=== PATIENT | female | born 1960 | race Caucasian/White ===

== ENCOUNTER → 2019-08-28 | Outpatient (CLI) | payer OTHER ==
--- NOTE | 2019-08-29 13:21 | KCIC ---
Bilateral digital screening mammograms with 3-D tomosynthesis: Reason for examination: Routine screening. Comparison is made to previous studies dated 06/04/2017 and 09/15/2012. Bilateral mammograms in CC and oblique projections were obtained with 2-D imaging and 3-D tomosynthesis imaging on a Siemens Inspiration unit and reviewed on the workstation. Interpretation was made with the benefit of CAD. The skin and nipples show no abnormalities. No abnormal axillary lymph nodes are seen. The breast parenchyma shows scattered fatty and fibroglandular density. (Breast density: Category B.) There continue to be small nodular densities in the upper outer quadrant of the right breast posteriorly consistent with probable intramammary lymph nodes which are stable. There are no new dominant masses, suspicious calcifications or architectural distortion. Benign calcifications are present. Impression: No evidence of malignancy. Recommend routine screening. BI-RAD Category 2: Benign. "Our facility is accredited by the [employer] Mammography Program." This patient's information has been entered into a reminder system for the patient to be notified with the results of her examination and a target date for the next mammogram. Electronically signed by: Gail Jara MD (08/29/2019 1:18 PM) [id number]
== END ==
LOC: KCIC CT 16:38
PROVIDERS: ATTEND Family Medicine
DX: Z12.31 Encounter for screening mammogram for malignant neoplasm of breast (principal)
CPT/HCPCS: 77063; 77067

== ENCOUNTER → 2019-08-29 | Outpatient (CLI) | payer SELFPAY ==
--- NOTE | 2019-08-29 16:33 | KCIC ---
PQRS Compliance Statement: One or more of the following individualized dose reduction techniques were utilized for this examination: 1. Automated exposure control 2. Adjustment of the mA and/or kV according to patient size 3. Use of iterative reconstruction technique Coronary calcium score CT chest without contrast History: 59-year-old female with left chest pain, hypercholesterolemia, history of smoking, and family history of heart disease. Technique: With retrospective electrocardiogram gating axial reconstructed noncontrast images of the chest at the level of the coronary arteries was performed. Images were post processed on workstation and calcium score calculated using the modified Agatston Janowitz protocol. Findings: Total coronary calcium score is 0. This places the patient in the 0th percentile rank which means that 100% of females between the ages of 56-60 have a higher calcium score than this patient. This is a no identifiable plaque burden and very low cardiovascular disease risk. This is based on the calcium score of 0 of the left main coronary artery, 0 of the left anterior descending artery, score of 0 of the left circumflex artery and score of 0 of the right coronary artery. Noncoronary findings demonstrate calcified subcarinal and right and left hilar lymph nodes. The great vessels are normal caliber. The cardiac size is upper limits of normal. No pericardial effusion. Visualized upper abdomen is unremarkable. There is no pleural abnormality. The visualized central airways are patent. There is a 4 mm noncalcified nodule in the inferior lingula, image 30. There is minimal atelectasis or scarring in the posterior lower lobes bilaterally. The visualized lungs are otherwise clear. IMPRESSION: 1. Patient's total calcium score is 0. 2. There is a 4 mm noncalcified nodule in the lingula. Consider optional CT chest in 12 months per Fleischner Society guidelines. 3. Cardiac size upper limits of normal. Electronically signed by: Max Caicedo MD (08/29/2019 4:30 PM) [id number]
== END | disposition home or self-care (01) ==
LOC: KCIC 11:34
PROVIDERS: ATTEND Family Medicine
DX: Z13.6 Encounter for screening for cardiovascular disorders (principal); R07.89 Other chest pain; Z87.891 Personal history of nicotine dependence
CPT/HCPCS: 75571

== ENCOUNTER → 2020-09-27 | Outpatient (CLI) | payer OTHER ==
--- NOTE | 2020-09-27 14:24 | KCIC ---
CT scan of the chest without contrast 09/27/2020 CLINICAL HISTORY: History of lung nodule. TECHNIQUE: Unenhanced, contiguous, 0.6 mm axial sections were obtained through the chest. 1.5 mm and 5 mm axial along with 3 mm sagittal and coronal images were obtained. One or more of the following individualized dose reduction techniques were utilized for this study: 1. Automated exposure control. 2. Adjustment of the mA and/or kV according to patient size. 3. Use of iterative reconstruction technique. FINDINGS: Comparison is made to patient's CTA calcium scoring study dated 08/29/2019. Mild atherosclerotic calcification of the thoracic aorta is seen. The thoracic aorta is mildly tortuo us but tapers normally. Calcified hilar and mediastinal lymph nodes are seen which measure 3 mm to 1 cm in size. No hilar, mediastinal or axillary lymphadenopathy is noted. The heart is normal in size. Images through the upper abdomen are within normal limits. Very mild S-shaped curvature of the thorac olumbar spine is seen. Degenerative changes are seen involving the thoracic spine. A 8mm calcified granuloma is seen involving the superior aspect of the right upper lobe. A 4 mm nodul e seen involving the inferior aspect of the left lingula which is unchanged from the previous examina tion. A 4 mm pleural-based nodular opacity is seen involving the medial aspect of the right lower lob e which is unchanged. A 5 mm nodular opacity consistent with an intrafissural lymph node is seen with in the superior aspect of the major fissure, unchanged. No new pulmonary nodule is seen. Minimal dependent subsegmental atelectasis is seen involving both lungs. No area of consolidation is noted. No pneumothorax or pleural effusion is seen. IMPRESSION: Stable CT appearance of the chest as discussed above. No new pulmonary nodule is seen. Electronically signed by: Rickey Lemons MD (09/27/2020 2:22 PM) [id number]
== END ==
LOC: KCIC CT 10:41
PROVIDERS: ATTEND Family Medicine
DX: R91.1 Solitary pulmonary nodule (principal); J98.11 Atelectasis
CPT/HCPCS: 71250